=== PATIENT | female | born 1995 | race African-American/Black ===

== ENCOUNTER 2016-10-26 12:11 | Emergency (ER) | payer OTHER | END 2016-10-26 13:35 | disposition left against medical advice (07) | LOC: ER 12:11 | DX: Z53.21 Procedure and treatment not carried out due to patient leaving prior to being seen by health care provider (principal) ==

== ENCOUNTER 2016-12-07 18:08 | Emergency (ER) | payer OTHER ==
[2016-12-07 18:16] VITALS: BP 133/70
[2016-12-07] MEDS ORDERED: NORMAL SALINE 1000 ML 1,000 ML IV PRN (18:23)
[2016-12-07] MEDS ORDERED: METOCLOPRAMIDE HCL INJ/PF 10 MG/2 ML SDV IV ONE (18:23)
--- NOTE | 2016-12-07 18:25 | ER Document Report ---
ED Medical Screen (RME) - General Chief Complaint: Abdominal Pain Stated Complaint: STOMACH PAIN Time Seen by Provider: 12/07/16 18:22 Notes: Patient presents stating that she feels she may be dehydrated. She states she is "spitting" constantly. She states she has constant nausea. She also states she has some lower abdominal pressure. She states she is approximate 14 weeks . She denies any vaginal discharge or bleeding. Slightly tachycardic so an IV will be placed for rehydration and administration of medications. TRAVEL OUTSIDE OF THE [place] IN LAST 30 DAYS: No - Related Data Allergies/Adverse Reactions: amoxicillin Allergy (Verified 12/07/16 18:13) hydrocodone Allergy (Verified 12/07/16 18:13) Penicillins Allergy (Verified 12/07/16 18:13) Past Medical History Endocrine Medical History: Reports: Hx Hypothyroidism Renal/ Medical History: Denies: Hx Peritoneal Dialysis Physical Exam - Vital signs Vitals: Temp Pulse Resp BP Pulse Ox 98.4 F 105 H 16 133/70 H 98 12/07/16 18:13 12/07/16 18:13 12/07/16 18:13 12/07/16 18:13 12/07/16 18:13 Course - Vital Signs Vital signs: Temp Pulse Resp BP Pulse Ox 98.4 F 105 H 16 133/70 H 98 12/07/16 18:13 12/07/16 18:13 12/07/16 18:13 12/07/16 18:13 12/07/16 18:13
--- NOTE | 2016-12-07 19:16 | ER Document Report ---
Doctor's Note Notes: 12/07/16 19:15 I was informed as I was just about to walk into the room that the patient had to leave to go cloth picker her daughter. I did say hi to her, she was comfortably sitting up in no apparent distress and still refused further evaluation and treatment. She is leaving AMA understanding her diagnostic studies are pending at this point. She does agree to return if she feels that she is worsening at any moment. She understands risks involved with out further evaluation and treatment.
[2016-12-07 19:17] LABS: ABSOLUTE LYMPHOCYTES (AUTO) 2.3 10^3/uL (0.5-4.7); ABSOLUTE MONOCYTES (AUTO) 0.7 10^3/uL (0.1-1.4); ABSOLUTE NEUT (AUTO) 4.8 10^3/uL (1.7-8.2); BASOPHILS % (AUTO) 0.6 % (0-2); EOSINOPHILS % (AUTO) 0.5 % (0-6); HEMOGLOBIN 13.5 g/dL (12.0-15.5); HGB HCT DIFFERENCE 1.5; LYMPHOCYTES % (AUTO) 29.4 % (13-45); MEAN CORPUSCULAR HEMOGLOBIN 31.2 pg (27.0-33.4); MEAN CORPUSCULAR HGB CONC 34.6 g/dL (32.0-36.0); MEAN CORPUSCULAR VOLUME 90 fl (80-97); MONOCYTES % (AUTO) 8.6 % (3-13); RED BLOOD COUNT 4.32 10^6/uL (3.72-5.28); RED CELL DISTRIBUTION WIDTH 12.9 % (11.5-14.0); SEGMENTED NEUTROPHILS % (AUTO) 60.9 % (42-78); WHITE BLOOD COUNT 7.9 10^3/uL (4.0-10.5)
[2016-12-07 19:19] LABS: APPEARANCE,URINE SLIGHTLY-CLOUDY; BILIRUBIN,URINE NEGATIVE (NEGATIVE); GLUCOSE, URINE NEGATIVE (NEGATIVE); KETONES,URINE NEGATIVE (NEGATIVE); LEUKOCYTE ESTERASE,URINE NEGATIVE (NEGATIVE); NITRITE,URINE NEGATIVE (NEGATIVE); PROTEIN,URINE NEGATIVE (NEGATIVE); URINE SPECIFIC GRAVITY 1.026; UROBILINOGEN,URINE NEGATIVE mg/dL (<2.0)
[2016-12-07 19:36] LABS: ALANINE AMINOTRANSFERASE 33 U/L (9-52); ALBUMIN 4.2 g/dL (3.5-5.0); ALKALINE PHOSPHATASE 80 U/L (38-126); ANION GAP 12 (5-19); ASPARTATE AMINO TRANSFERASE 24 U/L (14-36); BILIRUBIN,DIRECT 0.3 mg/dL (0.0-0.4); BILIRUBIN,TOTAL 0.4 mg/dL (0.2-1.3); BLOOD UREA NITROGEN 11 mg/dL (7-20); CALCIUM 9.6 mg/dL (8.4-10.2); CARBON DIOXIDE 24 mmol/L (22-30); CHLORIDE 101 mmol/L (98-107); CREATININE RESULT 0.42 mg/dL (0.52-1.25); GLUCOSE 89 mg/dL (75-110); POTASSIUM 4.3 mmol/L (3.6-5.0); SODIUM 136.8 mmol/L (137-145); TOTAL PROTEIN 8.5 g/dL (6.3-8.2)
== END 2016-12-07 19:15 | disposition left against medical advice (07) ==
LOC: ER 18:08
DX: O26.899 Other specified pregnancy related conditions, unspecified trimester (principal); R10.9 Unspecified abdominal pain; R00.0 Tachycardia, unspecified; R11.0 Nausea; Z3A.00 Weeks of gestation of pregnancy not specified; Z88.0 Allergy status to penicillin; Z88.5 Allergy status to narcotic agent; Z53.20 Procedure and treatment not carried out because of patient's decision for unspecified reasons
CPT/HCPCS: 99284; 96374; 36415; 85025; 80053; 81001; J2765; J7030

== ENCOUNTER 2017-10-23 09:27 | Emergency (ER) | payer OTHER ==
--- NOTE | 2017-10-23 10:05 | ER Document Report ---
ED General - General Chief Complaint: Vaginal Itching Stated Complaint: VAGINAL IRRITATION Time Seen by Provider: 10/23/17 09:58 Notes: 22-year-old female here with complaints of foul-smelling urine and urinary hesitancy ongoing for the past 3 days. She has no abdominal pain. No fevers chills. No nausea vomiting vaginal itching/discharge/bleeding. Has a prior history of UTI. TRAVEL OUTSIDE OF THE [place] IN LAST 30 DAYS: No - Related Data Allergies/Adverse Reactions: amoxicillin Allergy (Verified 10/23/17 09:54) hydrocodone Allergy (Verified 10/23/17 09:54) Penicillins Allergy (Verified 10/23/17 09:54) Past Medical History - General Last Menstrual Period: 10/12/2017 - Social History Smoking Status: Never Smoker Chew tobacco use (# tins/day): No Frequency of alcohol use: Social Drug Abuse: None Family History: None Patient has suicidal ideation: No Patient has homicidal ideation: No Endocrine Medical History: Reports: Hx Hypothyroidism Renal/ Medical History: Denies: Hx Peritoneal Dialysis Review of Systems - Review of Systems Notes: See history of present illness for pertinent positive review of systems; otherwise all review of systems have been reviewed and are negative Physical Exam - Vital signs Vitals: Temp Pulse Resp BP Pulse Ox 98.8 F 85 18 126/74 H 96 10/23/17 09:34 10/23/17 09:34 10/23/17 09:34 10/23/17 09:34 10/23/17 09:34 - Notes Notes: PHYSICAL EXAMINATION: GENERAL: Well-appearing and in no acute distress. HEAD: Atraumatic, normocephalic. EYES: Pupils equal round and reactive to light, extraocular movements intact, sclera anicteric, conjunctiva are normal. ENT: nares patent, oropharynx clear without exudates. Moist mucous membranes. NECK: Normal range of motion, supple without lymphadenopathy LUNGS: CTAB and equal. No wheezes rales or rhonchi. HEART: Regular rate and rhythm without murmurs ABDOMEN: Soft, no tenderness. No facial grimacing/wincing upon palpation. No guarding, no rebound. EXTREMITIES: Normal range of motion, no pitting edema. No cyanosis. NEUROLOGICAL: Cranial nerves grossly intact. Normal sensory/motor exams. PSYCH: Normal mood, normal affect. SKIN: Warm, Dry, normal turgor, no rashes or lesions noted Course - Re-evaluation Re-evalutation: 10/23/17 11:10 MEDICAL DECISION MAKING: Urinalysis does show some trace bacteria and leukocyte esterase Will prescribe Macrobid and instructed follow-up PCP next day or few Patient understands and agrees to the plan of care - Vital Signs Vital signs: Temp Pulse Resp BP Pulse Ox 98.8 F 85 18 126/74 H 96 10/23/17 09:34 10/23/17 09:34 10/23/17 09:34 10/23/17 09:34 10/23/17 09:34 - Laboratory Laboratory results interpreted by me: 10/23/17 10:07 Urine Urobilinogen 2.0 H Ur Leukocyte Esterase SMALL H Urine Ascorbic Acid 40 H Discharge - Discharge Clinical Impression: Foul smelling urine Condition: Good Disposition: HOME, SELF-CARE Additional Instructions: You were seen in the emergency department at [facility]. Finish antibiotics and do not skip any doses. Please followup with your primary physician in the next few days for further management/evaluation. Please return to the emergency department for worsening of symptoms or any symptom that you deem to be concerning or life-threatening. Thank you for allowing us to be part of your care. Prescriptions: Nitrofurantoin/Nitrofuran Mac [Macrobid 100 mg Capsule] 1 tab PO BID #20 capsule
[2017-10-23 10:47] LABS: APPEARANCE,URINE SLIGHTLY-CLOUDY; BILIRUBIN,URINE NEGATIVE (NEGATIVE); COLOR,URINE YELLOW; GLUCOSE, URINE NEGATIVE (NEGATIVE); KETONES,URINE NEGATIVE (NEGATIVE); LEUKOCYTE ESTERASE,URINE SMALL (NEGATIVE); NITRITE,URINE NEGATIVE (NEGATIVE); PROTEIN,URINE NEGATIVE (NEGATIVE); URINE SPECIFIC GRAVITY 1.024
[2017-10-23 11:14] VITALS: BP 137/69
== END 2017-10-23 11:12 | disposition home or self-care (01) ==
LOC: ER 09:27
DX: R39.89 Other symptoms and signs involving the genitourinary system (principal); R39.11 Hesitancy of micturition; Z87.440 Personal history of urinary (tract) infections; Z88.0 Allergy status to penicillin; Z88.5 Allergy status to narcotic agent
CPT/HCPCS: 36415; 81001; 87086; 87088; 87186; 99283